=== PATIENT | female | born 1970 | race Caucasian/White ===

== ENCOUNTER 2018-07-10 11:14 | Emergency (ER) | payer BC ==
[2018-07-10] MEDS ORDERED: NATURE-THROID32.5 MG PO (11:16)
== END 2018-07-10 12:30 | disposition home or self-care (01) ==
LOC: ED
DX: S92.354A Nondisplaced fracture of fifth metatarsal bone, right foot, initial encounter for closed fracture (principal); Z79.899 Other long term (current) drug therapy; X50.1XXA Overexertion from prolonged static or awkward postures, initial encounter; Y93.01 Activity, walking, marching and hiking; Y92.89 Other specified places as the place of occurrence of the external cause; Y99.8 Other external cause status